=== PATIENT | female | born 1990 | race Caucasian/White ===

== ENCOUNTER 2019-07-25 08:33 | Day surgery (SDC) | payer OTHER ==
[2019-07-25 09:07] VITALS: BMI 36.2
[2019-07-25] MEDS ORDERED: hydrALAZINE 20 MG/ML VIAL SLOW IVP PRN (09:30)
--- NOTE | 2019-07-25 10:04 | PRG ---
DATE OF SERVICE: 07/25/2019 PRIMARY ADMINISTRATIVE MANAGER: Dr. Ulices Vo. CHIEF COMPLAINT: Fall. HISTORY OF PRESENT ILLNESS: The patient is a 29-year-old, G2, P1, female with an intrauterine at 37 weeks, presents for a fall that occurred about 5:30 this morning. The patient reports that she was outside, tending to the dogs barking, and when walking in, transitioning from the grass, the cement, slipped, landed on her hip and her hand. She reports that the fall was not a hard fall. She says her hand is sore, but is able to be used and moved without any difficulty and has no bruising. The patient has no obstetric complaints or concerns at this time. PAST MEDICAL HISTORY: Negative. PAST SURGICAL HISTORY: She has had LASIK eye surgery, wisdom teeth removal, and surgery on her left elbow for lymph nodes removal. ALLERGIES: PENICILLIN WITH RASH. MEDICATIONS: vitamins. SOCIAL HISTORY: Denies drug, alcohol, or tobacco use. OB LABORATORY DATA: Unavailable at time of dictation. REVIEW OF SYSTEMS: Per HPI. PHYSICAL EXAMINATION: VITAL SIGNS: Blood pressure 109/66, heart rate of 81, and respiratory rate of 18. GENERAL: She appears to be in no acute distress. She is alert, oriented, cooperative, and pleasant to interact with. HEAD: Normocephalic and atraumatic. LUNGS: Clear to auscultation bilaterally. HEART: Has regular rate and rhythm. ABDOMEN: Gravid, soft, and nontender to palpation. She has no vertebral tenderness to palpation. No paravertebral tenderness to palpation. Her SI joints are nontender. She has no hip tenderness. There is no bruising visible. heart tracing for fall shows the fetus with a baseline in the 140s with moderate long-term variability, positive 15 x 15 accelerations, no decelerations. The tocometer shows couple of isolated contractions not palpable by the patient. ASSESSMENT AND PLAN: The patient is a 29-year-old female, G2, P1, with an intrauterine at 37 weeks, who had a fall approximately 3.5 hours ago, not involving her abdomen. The nature of the fall is not severe and did not leave any bruising, lacerations, or other injuries. The patient's fetus has a reactive NST. There is no evidence of labor. The patient is being discharged to home. She has an appointment with Dr. Vo on Tuesday, which we have encouraged that she keep. Job ID: [id number]
== END 2019-07-25 09:39 | disposition home health service (06) ==
LOC: L&D/OP 08:33
PROVIDERS: ATTEND Obstetrics & Gynecology
DX: Z04.3 Encounter for examination and observation following other accident (principal); Z3A.37 37 weeks gestation of pregnancy; W01.0XXA Fall on same level from slipping, tripping and stumbling without subsequent striking against object, initial encounter
CPT/HCPCS: 99282

== ENCOUNTER 2019-08-16 05:36 | Inpatient (IN) | payer OTHER ==
[2019-08-16 06:03] VITALS: BMI 36.2
[2019-08-16] MEDS ORDERED: Ibuprofen 800 MG TAB PO PRN (06:14)
[2019-08-16] MEDS ORDERED: Ondansetron PF 4 MG/2 ML Vial IVP PRN ×2 (06:14→12:29)
[2019-08-16] MEDS ORDERED: Lidocaine 1% (PF) 30 ML VIAL SC PRN (06:14)
[2019-08-16] MEDS ORDERED: Promethazine HCl 25 MG/ML VIAL IM PRN ×2 (06:14→12:29)
[2019-08-16] MEDS ORDERED: Butorphanol Tartrate 1 MG/ML VIAL SLOW IVP PRN (06:14)
[2019-08-16] MEDS ORDERED: HYDROcodone/Acetaminophen 5/325 mg Tablet PO PRN ×4 (06:14→12:29)
[2019-08-16] MEDS ORDERED: hydrALAZINE 20 MG/ML VIAL SLOW IVP PRN ×2 (06:14→12:29)
[2019-08-16] MEDS ORDERED: NS / Oxytocin 40 units/1000ml 1,000 ML IV PRN (06:14)
[2019-08-16] MEDS ORDERED: NS w/ Oxytocin 10 units 500 ML IV SCH ×2 (06:14)
[2019-08-16] MEDS ORDERED: Lactated Ringer's 1,000 ML IV SCH (06:14)
[2019-08-16 06:24] LABS: Hemoglobin 13.3 g/dL (12.0-16.0); Mean Corpuscular HGB CONC 35.9 g/dL (32.0-36.0); Mean Corpuscular Hemoglobin 33.5 pg (27.0-31.0); Mean Corpuscular Volume 93.3 fL (78.0-98.0); Platelet Count 193 thou/uL (130-400); RBC Distribution Width 11.7 % (11.5-14.5); Red Blood Cell (RBC) Count 3.97 mill/uL (4.20-5.40); White Blood Cell (WBC) Count 8.4 thou/uL (4.8-10.8)
[2019-08-16 07:02] LABS: HBSAg Index 0.27 S/CO (0-0.99); Hep B Surf Ag Non-Reactive S/CO (NonReactive); Syphilis Antibody Nonreactive (Nonreactive); Syphilis Antibody Index 0.05 S/CO (<1.00 Non-Reactive)
[2019-08-16] MEDS ORDERED: Misoprostol 200 MCG TAB ONE (09:34)
[2019-08-16] MEDS ORDERED: Lidocaine 1.5%/Epinephrine 1:200,000 5 ML AMPUL IJ ONE (10:51)
[2019-08-16] MEDS ORDERED: Fentanyl 4 mcg/Bup 0.1% Cadd 0 ML ONE (10:52)
--- NOTE | 2019-08-16 11:46 | PDOC.OPDEL ---
OB Operative/Delivery Note Delivery Dr/Surgeon: Tavo Pre-Delivery Diagnosis: elective induction Procedure/Post Delivery Dx: spontaneous vaginal delivery Weeks gestation: 40 Anesthesia: none - Findings A Sex: female - Additional Findings/Plan Placenta delivered: spontaneous Repaired Obstetrical Laceration: none Estimated blood loss: 100ml Post delivery plan: routine recovery
[2019-08-16] MEDS ORDERED: Milk Of Magnesia 30 ML UDCUP PO PRN (12:29)
[2019-08-16] MEDS ORDERED: NS / Oxytocin 40 units/1000ml 1,000 ML IV SCH (12:29)
[2019-08-16] MEDS ORDERED: Lanolin Ointment 7 GM TUBE TOP PRN (12:29)
[2019-08-16] MEDS ORDERED: Bisacodyl 10 MG SUPP PR PRN (12:29)
[2019-08-16] MEDS ORDERED: Preparation H Ointment 28 GM TUBE PR PRN (12:29)
[2019-08-16] MEDS ORDERED: Adacel (T-DAP) 0.5 ML SYRINGE IM ONE (12:29)
[2019-08-16] MEDS ORDERED: diphenhydrAMINE 25 MG CAP PO PRN (12:29)
[2019-08-16] MEDS: Ferrous Sulfate 325 MG TAB PO SCH (14:56)
[2019-08-16] MEDS: Ibuprofen 800 MG TAB PO SCH ×2 (14:56→21:09)
[2019-08-16] MEDS ORDERED: FLU VACC QS2019-20(6MOS UP)/PF 60 MCG/0.5 ML SYRINGE IM ONE (21:00)
[2019-08-16] MEDS: Docusate Calcium (SURFAK) 240 MG CAP PO SCH (21:10)
[2019-08-17] MEDS: Ibuprofen 800 MG TAB PO SCH ×2 (05:42→14:02)
[2019-08-17] MEDS ORDERED: Prenatal Vitamin 1 TAB PO SCH (09:00)
[2019-08-17] MEDS: Docusate Calcium (SURFAK) 240 MG CAP PO SCH (09:17)
[2019-08-17] MEDS: Ferrous Sulfate 325 MG TAB PO SCH ×2 (09:18→15:53)
--- NOTE | 2019-08-17 11:16 | PDOC.PP ---
Post Progress Note Post Day #: 1 Subjective: doing well, no concerns, possible DC today PO intake tolerated: yes Flatus: yes Ambulation: yes Vital Signs (12 hours) Temp Pulse Resp BP Pulse Ox 08/17/19 08:21 98.1 F 60 20 93/60 96 08/17/19 04:45 97.9 F 60 18 102/64 08/17/19 00:00 97.9 F 60 18 90/52 L Weight Weight 218 lb - Physical Examination General: NAD Respiratory: non-labored breathing Abdominal: no distention Fundus firm & at: below umb Extremities: negative homans (B) Skin: no rash Neurological: no gross focal deficits Result Diagrams: 08/16/19 06:15 Additional Labs: Post Labs Blood Type A POSITIVE 08/16/19 06:15 Hep Bs Antigen Non-Reactive S/CO (NonReactive) 08/16/19 06:15 (1) 40 weeks gestation of Code(s): Z3A.40 - 40 WEEKS GESTATION OF Status: Acute (2) Vaginal delivery Code(s): O80 - ENCOUNTER FOR FULL-TERM UNCOMPLICATED DELIVERY Status: Acute - Assessment/Plan PPD1 doing well, no concerns, possible DC later today if desired and if baby DC.
[2019-08-17 12:05] VITALS: BP 104/60; TEMP 98.2
== END 2019-08-17 18:25 | disposition home or self-care (01) | DRG 807 ==
LOC: L&D-LIB 05:36 → 3SW 13:03
PROVIDERS: ADMIT Obstetrics & Gynecology; ATTEND Obstetrics & Gynecology
PROC: 10E0XZZ Delivery of Products of Conception, External Approach (ICD-10-PCS; principal; 2019-08-16)
PROC: 10907ZC Drainage of Amniotic Fluid, Therapeutic from Products of Conception, Via Natural or Artificial Opening (ICD-10-PCS; 2019-08-16)
PROC: 3E033VJ Introduction of Other Hormone into Peripheral Vein, Percutaneous Approach (ICD-10-PCS; 2019-08-16)
DX: O80 Encounter for full-term uncomplicated delivery (principal); Z37.0 Single live birth; Z3A.40 40 weeks gestation of pregnancy
CPT/HCPCS: 36415; 85027; 86780; 86850; 86900; 86901; 87340; J0595; J2001; J2590; J3490